=== PATIENT | male | born 1985 | race Hispanic/Latino ===

== ENCOUNTER 2021-03-29 12:35 | Emergency (ER) | payer SELFPAY ==
--- NOTE | 2021-03-29 14:52 | XRay Report ---
CHEST 1 VIEW 03/29/2021 2:40 PM INDICATION / CLINICAL INFORMATION: Concern for bolus, weakness. COMPARISON: None available. FINDINGS: SUPPORT DEVICES: None. HEART / MEDIASTINUM: No significant abnormality. LUNGS / PLEURA: No significant pulmonary or pleural abnormality. No pneumothorax. ADDITIONAL FINDINGS: No significant additional findings. IMPRESSION: 1. No acute findings. Signer Name: Aguilar Palacios DO Signed: 03/29/2021 2:48 PM Workstation Name: [id number]
--- NOTE | 2021-03-29 15:37 | Emergency Department Report ---
ED General Adult HPI - General Chief complaint: Pain General Stated complaint: SOB CHEST FOOD STUCK IN CHEST Time Seen by Provider: 03/29/21 14:24 Source: patient Mode of arrival: Ambulatory Limitations: No Limitations - History of Present Illness Initial comments: The patient was evaluated in the emergency department for symptoms described in the history of present illness. He/she was evaluated in the context of the global COVID-19 pandemic, which necessitated consideration that the patient might be at risk for infection with the virus that causes COVID-19. Institutional protocols and algorithms that pertain to the evaluation of patients at risk for COVID-19 are in a state of rapid change based on information released by regulatory bodies including the CDC and federal and state organizations. These policies and algorithms were followed during the patient's care in the emergency department. Please note that these policies, procedures and recommendations changed on a rapid basis. 36-year-old male presents to the emergency room stating he has had having food stuck in his chest. Patient states that he ate something this mor madeline but not quite sure what he ate and is not able to swallow it down. Patient reports no past medical history has not vomited only been spitting. No fever no chills. Patient has stable blood pressure 136/96 heart rate 98 satting 100% on room air and temp of 97.7. Patient reports no known drug allergies currently takes no medications on a daily basis. -: This morning Location: chest Radiation: non-radiation Severity scale (0 -10): 6 Consistency: constant Improves with: none Associated Symptoms: denies other symptoms - Related Data Home Medications Medication Instructions Recorded Confirmed Last Taken No Known Home Medications [No 03/29/21 03/29/21 Unknown Reported Home Medications] Allergies Allergy/AdvReac Type Severity Reaction Status Date / Time No Known Allergies Allergy Verified 03/29/21 12:43 ED Review of Systems ROS: Stated complaint: SOB CHEST FOOD STUCK IN CHEST Other details as noted in HPI Comment: All other systems reviewed and negative ED Past Medical Hx - Past Medical History Previous Medical History?: No - Surgical History Past Surgical History?: No - Medications Home Medications: Home Medications Medication Instructions Recorded Confirmed Last Taken Type No Known Home Medications [No 03/29/21 03/29/21 Unknown History Reported Home Medications] ED Physical Exam - General Limitations: No Limitations General appearance: alert, in no apparent distress - Head Head exam: Present: atraumatic, normocephalic - Eye Eye exam: Present: normal appearance - ENT ENT exam: Present: mucous membranes moist, normal external ear exam - Neck Neck exam: Present: normal inspection, full ROM - Respiratory Respiratory exam: Present: normal lung sounds bilaterally. Absent: chest wall tenderness, accessory muscle use - Cardiovascular Cardiovascular Exam: Present: regular rate - GI/Abdominal GI/Abdominal exam: Present: soft. Absent: distended, tenderness - Extremities Exam Extremities exam: Present: normal inspection - Back Exam Back exam: Present: normal inspection - Neurological Exam Neurological exam: Present: alert, oriented X3, normal gait - Psychiatric Psychiatric exam: Present: normal affect, normal mood - Skin Skin exam: Present: warm, dry, intact, normal color. Absent: rash ED Course Vital Signs 03/29/21 03/29/21 03/29/21 12:43 16:48 17:00 Temperature 97.7 F Pulse Rate 96 H 90 Respiratory 16 13 Rate Blood Pressure 140/98 140/98 Blood Pressure 136/96 [Left] O2 Sat by Pulse 100 100 Oximetry 03/29/21 03/29/21 03/29/21 17:16 17:30 18:09 Temperature Pulse Rate 94 H 84 89 Respiratory 16 14 16 Rate Blood Pressure 140/98 145/94 Blood Pressure 140/93 [Left] O2 Sat by Pulse 100 98 99 Oximetry 03/29/21 18:10 Temperature Pulse Rate 89 Respiratory 16 Rate Blood Pressure 140/93 Blood Pressure [Left] O2 Sat by Pulse 100 Oximetry - Reevaluation(s) Reevaluation #1: 03/29/[address] Mayorga from [facility] they are not able to do endoscopy as a team is gone. - Consultations Consultation #1: 03/29/21 18:[address] Robe Kirkland [place] [facility] Lu[facility] Leyva he states that he will accept the patient for an ER to ER evaluation. Spoke to ER attending states that they will accept the patient. Spoke to charge nurse Bucky to give report. Will fax facesheet [phone] ED Medical Decision Making - Radiology Data Radiology results: report reviewed [facility] [address] [place] [address] XRay Report Signed Patient: ACE FRAIRE MR #: [id number] : 1985 Acct:[id number] Age/Sex: 36 / M ADM Date: 03/29/21 Loc: ED Attending Dr: Ordering Physician: JUSTIN ALVARADO Date of Service: 03/29/21 Procedure(s): XR chest 1V ap Accession Number(s): [id number] cc: JUSTIN ALVARADO Fluoro Time In Minutes: CHEST 1 VIEW 03/29/2021 2:40 PM INDICATION / CLINICAL INFORMATION: Concern for bolus, weakness. COMPARISON: None available. FINDINGS: SUPPORT DEVICES: None. HEART / MEDIASTINUM: No significant abnormality. LUNGS / PLEURA: No significant pulmonary or pleural abnormality. No pneumothorax. ADDITIONAL FINDINGS: No significant additional findings. IMPRESSION: 1. No acute findings. Signer Name: Aguilar Barry DO Signed: 03/29/2021 2:48 PM Workstation Name: [id number] Transcribed By: EDGARD Dictated By: AGUILAR BARRY DO Electronically Authenticated By: AGUILAR BARRY DO Signed Date/Time: 03/29/211447 DD/ 47 TD/TT: - Medical Decision Making 36-year-old male presents to the emergency room stating he has had having food stuck in his chest. Patient states that he ate something this morning but not quite sure what he ate and is not able to swallow it down. Patient reports no past medical history has not vomited only been spitting. No fever no chills. Patient has stable blood pressure 136/96 heart rate 98 satting 100% on room air and temp of 97.7. Patient reports no known drug allergies currently takes no medications on a daily basis. Chest x-ray ordered shows no acute findings Discussed case with Dr. Narvaez discussed to have patient evaluated by GI to have an endoscopy for removal of food bolus. Spoke to Dr. Mayorga from gastro enterology they are not able to see patient as the team has gone. Call [facility] they have no rooms called [facility] their own excepting trauma MIs and strokes. Called [facility] [place] was able to get patient transfer request accepted by [facility]. Will fax in facesheet. Patient transfer sheets filled out. Discussed with patient the plan. Patient was not very happy about going to [facility] but explained to patient that because of the pandemic there is no closer transfers at this time. Patient has accepted to be transferred. Discussed with legal secretary for alessandra if she can call for transfer for patient to go to [facility]. Critical care attestation.: If time is entered above; I have spent that time in minutes in the direct care of this critically ill patient, excluding procedure time. ED Disposition Clinical Impression: Food impaction of esophagus Disposition: 51 HOSPICE/MEDICAL FACILITY Is pt being admited?: No Does the pt Need Aspirin: No Condition: Stable Additional Instructions: Patient is to be transferred to [facility] for removal of food impaction.
--- NOTE | 2021-03-29 16:59 | Event Note ---
Date of service: 03/29/21 Face to Face: For this encounter I have reviewed the PA/CERAMICS TECHNICIAN documentation, treatment plan, medical decision making, and I had face to face time with this patient. Patient presented with an esophageal food bolus. He was eating something and he thinks that something got stuck. He has been unable to swallow water or his own saliva for the last several hours. He states that he feels as though there is something stuck "in his chest." And points to the sternal area. He has no trouble breathing. He has never had symptoms like this before. On exam, patient is speaking in complete sentences. He is spitting into a cup. He cannot tolerate water. GI was called. We do not have an endoscopy team to call in to complete this esophageal food bolus removal. Patient will require transfer to a facility with GI available and staff available.
[2021-03-29] MEDS ORDERED: KETOROLAC 30 MG/1 ML INJ IV ONE (19:15)
[2021-03-29] MEDS ORDERED: KETOROLAC 30 MG/1 ML INJ ONE (22:17)
[2021-03-29] MEDS ORDERED: SODIUM CHLORIDE 0.9% 1000 ML 1,000 ML IV ONE (22:36)
[2021-03-29] MEDS ORDERED: GLUCAGON (HUMAN RECOMBINANT) 1 MG/ML INJ IV ONE (22:36)
[2021-03-29] MEDS ORDERED: LORazepam 2 MG/ML VIAL IV ONE (22:36)
[2021-03-30 01:31] VITALS: BP 133/95
== END 2021-03-30 01:25 | disposition hospice, inpatient (51) ==
LOC: ED 12:35
DX: T18.128A Food in esophagus causing other injury, initial encounter (principal); X58.XXXA Exposure to other specified factors, initial encounter; Y93.89 Activity, other specified; Y92.89 Other specified places as the place of occurrence of the external cause; Y99.8 Other external cause status
CPT/HCPCS: 71045; 96374; 96375; 99285; J1610; J1885; J2060